=== PATIENT | male | born 1965 | race Caucasian/White ===

== ENCOUNTER 2019-02-07 21:58 | Emergency (ER) | payer BC ==
[2019-02-07] MEDS ORDERED: Lidocaine 1% MPF ** 5 ML VIAL INJ ONE (22:07)
[2019-02-07 22:11] VITALS: BP 134/67
--- NOTE | 2019-02-07 22:11 | UC ---
Skin Complaint HPI - HPI Summary HPI Summary: 53 yo male CC laceration between 4th and 5th toes. Cut on a piece of metal. No loss of sensation. Bleeding stopped by direct pressure. - History of Current Complaint Time Seen by Provider: 02/07/19 22:00 Stated Complaint: LAC BETWEEN TOES - Allergy/Home Medications Allergies/Adverse Reactions: Allergies Allergy/AdvReac Type Severity Reaction Status Date / Time No Known Allergies Allergy Verified 02/07/19 22:05 PMH/Surg Hx/FS Hx/Imm Hx Previously Healthy: Yes - Family History Known Family History: Positive: Non-Contributory Review of Systems All Other Systems Reviewed And Are Negative: Yes Constitutional: Positive: Negative Skin: Positive: Other - see hpi Eyes: Positive: Negative ENT: Positive: Negative Respiratory: Positive: Negative Cardiovascular: Positive: Negative Gastrointestinal: Positive: Negative Motor: Positive: Negative Neurovascular: Positive: Negative Musculoskeletal: Positive: Negative Neurological: Positive: Negative Psychological: Positive: Negative Is Patient Immunocompromised?: No Physical Exam Triage Information Reviewed: Yes Appearance: Well-Appearing, No Pain Distress, Well-Nourished Neck: Positive: Supple Respiratory: Positive: No respiratory distress Musculoskeletal: Positive: Strength Intact, ROM Intact Neurological: Positive: Alert Psychological: Positive: Age Appropriate Behavior Skin: Positive: Other - 1.5cm sc laceration between left 4th/5th toes Laceration Repair - Laceration Repair 1 Description: Linear Laceration Size After Repair: Length (cm) - 1.5CM Modified For Repair: No Type Injection: Local Anesthesia Used: 1.0% Lido Irrigation With Pressure Irrigation Device: Yes Closure Material: Sutures - ONE FIGURE 8 SUTURE Closure Method: Single Layer Suture Of: Skin Suture Type: Prolene - 4-0 Course/Dx - Diagnoses Provider Diagnosis: Laceration of left foot Discharge - Sign-Out/Discharge Documenting (check all that apply): Patient Departure All imaging exams completed and their final reports reviewed: No Studies - Discharge Plan Condition: Stable Disposition: HOME Prescriptions: Cephalexin CAP* [Keflex CAP*] 500 mg PO TID #20 cap Patient Education Materials: Care For Your Stitches (ED), Laceration (ED) Referrals: Samira Barnard MD [Primary Care Provider] - Additional Instructions: FOLLOW UP WITH YOUR DOCTOR. YOU HAVE A SINGLE FIGURE 8 SUTURE IN YOUR LACERATION THAT NEEDS TO BE TAKEN OUT IN 8-10 DAYS. GET REEVALUATED SOONER IF WORSE; SIGNS OF INFECTION OR ANY QUESTIONS OR CONCERNS. - Billing Disposition and Condition Condition: STABLE Disposition: Home
[2019-02-07] MEDS ORDERED: Cephalexin CAP* 500 MG PO ONE (22:33)
== END 2019-02-07 22:40 | disposition home or self-care (01) ==
LOC: UCCORT 21:58
DX: S91.312A Laceration without foreign body, left foot, initial encounter (principal); W26.9XXA Contact with unspecified sharp object(s), initial encounter; Y92.9 Unspecified place or not applicable
CPT/HCPCS: 12001; 99202; A9270-GY; G0463